=== PATIENT | female | born 1985 | race African-American/Black ===

== ENCOUNTER 2018-03-09 13:48 | Emergency (ER) | payer OTHER ==
[2018-03-09 14:06] VITALS: TEMP 99.9; BMI 38.2
--- NOTE | 2018-03-09 14:47 | PDOC ---
History of Present Illness - General Chief Complaint: Vomiting/Diarrhea Stated Complaint: 16 WEEKS VOMITING - History of Present Illness Initial Comments: 32 year old female (16 weeks by recent TVUS with Dr. Shukla presenting for 2 days of diarrhea, vomiting, and abdominal cramping. Patient states she had some chicken salad that she think may have caused her food poisoning. She has mostly had multiple daily bouts of diarrhea but had two episodes of vomiting when it started on Tuesday night. States her has been uncomplicated with the exception of borderline hypertension for which she will be seen by a production laborer next week. Denies fevers, chest pain, blood from any orifice, shortness of breath, or any other symptoms. 03/09/18 15:00 Past History - Past Medical History Allergies/Adverse Reactions: Allergies Allergy/AdvReac Type Severity Reaction Status Date / Time No Known Allergies Allergy Verified 03/09/18 13:51 Home Medications: Ambulatory Orders Clotrimazole 1 applic TP DAILY 7 Days #1 bottle 03/09/18 Clotrimazole 1 applic TP DAILY 7 Days #1 bottle 03/09/18 COPD: No Other medical history: denies. - Suicide/Smoking/Psychosocial Hx Smoking History: Never smoked Review of Systems - Review of Systems Constitutional: Yes: Chills. No: Diaphoresis, Loss of Appetite HEENTM: No: Blurred Vision, Tearing Respiratory: No: Cough, Shortness of Breath, Wheezing Cardiac (ROS): No: Chest Pain, Edema, Irregular Heart Rate ABD/GI: Yes: Diarrhea, Nausea, Vomiting : No: Dysuria, Discharge, Frequency Musculoskeletal: No: Back Pain, Joint Pain Integumentary: No: Change in Color, Lesions, Lumps Neurological: No: Headache, Numbness, Paresthesia Psychiatric: No: Anxiety, Depression *Physical Exam - Vital Signs Last Vital Signs Temp Pulse Resp BP Pulse Ox 99.9 F H 117 H 19 125/78 100 03/09/18 13:51 03/09/18 13:51 03/09/18 13:51 03/09/18 13:51 03/09/18 13:51 - Physical Exam General Appearance: Yes: Nourished, Appropriately Dressed. No: Apparent Distress HEENT: positive: EOMI, NATE, Normal Voice Neck: positive: Trachea midline, Normal Thyroid, Supple. negative: Tender, Rigid Respiratory/Chest: positive: Lungs Clear, Normal Breath Sounds. negative: Chest Tender, Respiratory Distress Cardiovascular: positive: Regular Rhythm, Tachycardia. negative: Regular Rate Female Pelvic Exam: positive: normal external exam, cervical os closed, discharge (casseous discharge) Gastrointestinal/Abdominal: positive: Normal Bowel Sounds, Flat, Soft. negative : Tender Lymphatic: negative: Adenopathy Musculoskeletal: positive: Normal Inspection. negative: CVA Tenderness Extremity: positive: Normal Capillary Refill, Normal Inspection, Normal Range of Motion. negative: Tender Integumentary: positive: Normal Color, Dry, Warm Neurologic: positive: Fully Oriented, Alert, Normal Mood/Affect ED Treatment Course - LABORATORY CBC & Chemistry Diagram: 03/09/18 15:20 03/09/18 15:20 Medical Decision Making - Medical Decision Making 32 year old female with normal labs and symptoms concerning for viral gastroenteritis. US demonstrating viable IUP with UA clean but pelvic exam concerning for vaginal candidiasis. Prescribed topical Clotrimazole and return precautions + OBGyn follow up. 03/09/18 18:37 *DC/Admit/Observation/Transfer Diagnosis at time of Disposition: Viral gastroenteritis, Vaginal candidiasis - Discharge Dispostion Disposition: HOME Condition at time of disposition: Improved Decision to Admit order: No - Prescriptions Prescriptions: Clotrimazole 1 applic TP DAILY 7 Days #1 bottle Clotrimazole 1 applic TP DAILY 7 Days #1 bottle - Referrals Referrals: Lisbet López MD [Staff Physician] - - Patient Instructions Printed Discharge Instructions: DI for Vaginal Yeast Infection Additional Instructions: Your is healthy. You likely have a viral infection of your stomach that will get better within a few days. Please continue to eat and drink as much as possible. Please use the vaginal cream for your infection. Please see your obygn within the next few days.Please return to the Ed for new or worsening symptoms. - Post Discharge Activity
[2018-03-09] MEDS ORDERED: SODIUM CHLORIDE 0.9% 500 ML INFUS.BAG IV ONE (14:59)
[2018-03-09] MEDS ORDERED: ACETAMINOPHEN 1000 MG/100 ML VIAL (NON FORMULARY) IVPB ONE (15:34)
[2018-03-09] MEDS ORDERED: ACETAMINOPHEN INJECTION 100 ML IVPB ONE (15:36)
[2018-03-09 15:42] LABS: URINE APPEARANCE CLEAR; URINE BILIRUBIN NEGATIVE (<2.0 mg/dL); URINE COLOR YELLOW; URINE GLUCOSE (UA) NEGATIVE (NEGATIVE); URINE KETONE NEGATIVE (NEGATIVE); URINE LEUK ESTERASE NEGATIVE (NEGATIVE); URINE NITRITE NEGATIVE (NEGATIVE); URINE PROTEIN NEGATIVE (NEGATIVE); URINE UROBILINOGEN NEGATIVE mg/dL (0.2-1.0)
[2018-03-09 15:47] LABS: HCG,QUALITATIVE URINE POSITIVE
[2018-03-09] MEDS ORDERED: ONDANSETRON 4 MG/2 ML VIAL IVPUSH ONE (15:54)
[2018-03-09] MEDS ORDERED: ONDANSETRON 4 MG/2 ML VIAL ONE (15:59)
[2018-03-09 16:03] LABS: BASO % 0.2 % (0-2.0); EOS % 0.2 % (0-4.5); HEMATOCRIT 32.5 % (32.4-45.2); HEMOGLOBIN 10.6 GM/dL (10.7-15.3); LYMPH % 8.6 % (8-40); MCH 25.3 pg (25.7-33.7); MCHC 32.7 g/dl (32.0-36.0); MEAN CELL VOLUME 77.4 fl (80-96); MONO % 6.9 % (3.8-10.2); NEUT % 84.1 % (42.8-82.8); PLATELET COUNT 318 K/MM3 (134-434); RDW 15.6 % (11.6-15.6); WHITE BLOOD COUNT 8.9 K/mm3 (4.0-10.0)
--- NOTE | 2018-03-09 16:25 | PDOC ---
Attending Attestation - Resident Resident Name: Ever South - ED Attending Attestation I have performed the following: I have examined & evaluated the patient, The case was reviewed & discussed with the resident, I agree w/resident's findings & plan - HPI HPI: 03/09/18 16:15 32y/o healthy F 16 weeks gestation p/w n/v/d for 2 days after eating rice that was sitting out for 1 day. - Physicial Exam PE: 03/09/18 16:16 low grade temp, slight tachycardia resolved with lying flat no abd pain, nbnb emesis/diarrhea. chills but no fever. no travel/recent abx. no h/o recurring GI illness. no vag bleed/cramping - Medical Decision Making 03/09/18 16:18 32y/o healthy F at 16wks gestation with n/v/d, mild dehydration in setting of gastroenteritis, ? viral v toxin mediated. labs, ua ivf, iv apap ultrasound reassess
[2018-03-09 16:40] LABS: ALBUMIN 3.1 g/dl (3.4-5.0); ALK PHOS 81 U/L (45-117); ANION GAP 10 (8-16); BILIRUBIN,TOTAL 0.3 mg/dL (0.2-1.0); BLOOD UREA NITROGEN 3 mg/dL (7-18); CALCIUM 8.7 mg/dL (8.5-10.1); CHLORIDE 102 mmol/L (98-107); CO2 22 mmol/L (21-32); CREATININE 0.8 mg/dL (0.55-1.02); GLUCOSE,RANDOM 85 mg/dL (74-106); POTASSIUM 3.8 mmol/L (3.5-5.1); SGOT/AST 33 U/L (15-37); SGPT/ALT 73 U/L (12-78); SODIUM 134 mmol/L (136-145); TOT PROT 7.4 g/dl (6.4-8.2)
--- NOTE | 2018-03-09 18:20 | PDOC ---
*Physical Exam - Vital Signs Last Vital Signs Temp Pulse Resp BP Pulse Ox 99.9 F H 117 H 19 125/78 100 03/09/18 13:51 03/09/18 13:51 03/09/18 13:51 03/09/18 13:51 03/09/18 13:51 - Physical Exam Comments: 03/09/18 18:17 gen: aaox3, nad Heart: +s1s2 reg Lungs: cta b/l abd: soft, nt/nd +bs ext: no c/c/e neuro: no focal deficits ED Treatment Course - LABORATORY CBC & Chemistry Diagram: 03/09/18 15:20 03/09/18 15:20 - ADDITIONAL ORDERS Additional order review: Laboratory Results 03/09/18 03/09/18 03/09/18 16:59 15:23 15:20 Sodium 134 L Potassium 3.8 Chloride 102 Carbon Dioxide 22 Anion Gap 10 BUN 3 L Creatinine 0.8 Creat Clearance w eGFR > 60 Random Glucose 85 Calcium 8.7 Total Bilirubin 0.3 AST 33 ALT 73 Alkaline Phosphatase 81 Total Protein 7.4 Albumin 3.1 L Lipase 55 L Urine Color Yellow Urine Appearance Clear Urine pH 6.0 Ur Specific [place] 1.017 Urine Protein Negative Urine Glucose (UA) Negative Urine Ketones Negative Urine Blood Negative Urine Nitrite Negative Urine Bilirubin Negative Urine Urobilinogen Negative Ur Leukocyte Esterase Negative Urine HCG, Qual Positive 03/09/18 15:20 RBC 4.20 MCV 77.4 L MCHC 32.7 RDW 15.6 MPV 8.0 Neutrophils % 84.1 H Lymphocytes % 8.6 Monocytes % 6.9 Eosinophils % 0.2 Basophils % 0.2 - Medications Given in the ED: ED Medications Discontinued Medications Generic Name Dose Route Start Last Admin Trade Name Freq PRN Reason Stop Dose Admin Acetaminophen 1,000 mg 03/09/18 15:34 03/09/18 15:42 Ofirmev Injection - IVPB 03/09/18 15:35 1,000 mg ONCE ONE Administration Ondansetron HCl 4 mg 03/09/18 15:54 03/09/18 16:03 Zofran Injection IVPUSH 03/09/18 15:55 4 mg ONCE ONE Administration Sodium Chloride 1,000 ml 03/09/18 14:59 03/09/18 15:43 Normal Saline - IV 03/09/18 15:00 1,000 ml ONCE ONE Administration Medical Decision Making - Medical Decision Making 03/09/18 18:18 a/p: 32 yo female at 16weeks gestation with acute onset of n/v/d after eating rice that was sitting out all day -suspect food poisoning -pt signed out pending labs and ultrasound -us shows fhr of 148 labs with normal lipase 03/09/18 18:19 normal wbc negative ua discussed lab and imaging results pt feeling better and requesting to go home discussed labs and imaging with the patient discussed the BRAT diet discussed all reasons to return to the ED and need for follow up with [facility] was[facility] stable for d/c to home *DC/Admit/Observation/Transfer Diagnosis at time of Disposition: Nausea & vomiting, Diarrhea - Discharge Dispostion Disposition: HOME Condition at time of disposition: Stable Decision to Admit order: No - Referrals - Patient Instructions - Post Discharge Activity - Attestations Physician Attestion: 03/09/18 18:20 I, Dr. Luci Johnson, DO, attest that this document has been prepared under my direction and personally reviewed by me in its entirety. I further attest, that it accurately reflects all work, treatment, procedures and medical decision -making performed by me.
[2018-03-09 19:02] VITALS: BP 121/65; PULSE 85
== END 2018-03-09 19:02 | disposition home or self-care (01) ==
LOC: JER 13:48
PROC: 3E033NZ Introduction of Analgesics, Hypnotics, Sedatives into Peripheral Vein, Percutaneous Approach (ICD-10-PCS; principal; 2018-03-09)
PROC: 3E033GC Introduction of Other Therapeutic Substance into Peripheral Vein, Percutaneous Approach (ICD-10-PCS; 2018-03-09)
DX: O99.612 Diseases of the digestive system complicating pregnancy, second trimester (principal); K52.9 Noninfective gastroenteritis and colitis, unspecified; O98.812 Other maternal infectious and parasitic diseases complicating pregnancy, second trimester; B37.3 Candidiasis of vulva and vagina; Z3A.16 16 weeks gestation of pregnancy
CPT/HCPCS: 36415; 76815-TC; 80053; 81003; 83690; 84703; 85025; 99282-25; J0131